=== PATIENT | male | born 1945 | race African-American/Black ===

== ENCOUNTER 2017-01-23 14:46 | Emergency (ER) | payer MEDICARE, MEDICAID ==
[~2017-01-23] VITALS: Ht 170.2 cm; Wt 71.2 kg
[~2017-01-23 14:46] MED LIST: AMBIEN5 MG ORAL; ANTIVERT25 MG ORAL; AUGMENTIN 500M500 MG PO; AZITHROMYCIN250 MG PO; BACTRIM-DS1 EA ORAL; CEPHALEXIN500 MG ORAL; CEPHALEXIN500 MG PO; IBUPROFEN600 MG ORAL; IBUPROFEN600 MG PO; KEFLEX500 MG ORAL; LEVAQUIN500 MG ORAL; NAPROXEN375 MG PO; NKM; NORCO 5-325 TA1 EACH PO; NORCO 5/3251 TAB ORAL; PHENERGAN/CODE120 ML PO; VALIUM5 MG PO; VICODIN 5-5001 EACH PO
[2017-01-23] MEDS ORDERED: traMADol 50mg tab ORAL ONE (16:00)
[2017-01-23 16:08] LABS: APPEARANCE,URINE CLEAR; KETONES,URINE 2+ (NEGATIVE); LEUKOCYTE ESTERASE ,URINE 1+ (NEGATIVE); NITRITE,URINE NEGATIVE (NEGATIVE); PH,URINE 5 (4.5-8.0); PROTEIN,URINE NEGATIVE (NEGATIVE); UROBILINOGEN,URINE NORMAL MG/DL (0.0-1.0)
[2017-01-23 16:32] LABS: BACTERIA,URINE FEW /HPF; RBC,URINE 0-2 /HPF (0 - 0)
[2017-01-23] MEDS ORDERED: PEPCID20 MG ORAL (16:42)
[2017-01-23] MEDS ORDERED: NITROFURANTOIN100 M2 ORAL (16:42)
[2017-01-23 17:30] VITALS: BP 116/62
--- NOTE | 2017-01-23 20:53 | Emergency Room Report ---
History of Present Illness General Chief Complaint: Back Pain-No Injury Present Illness HPI The patient is a 71-year-old male with a history of GERD presenting for chest burning and left lower back pain which began yesterday. The patient states that this does feel like acid reflux. The patient has not taken any medications for this yet. Pain is described as a 5/10 burning sensation and is worse with eating. The pain does not radiate. Patient first noticed the left lower back pain yesterday for no known reason. This pain is described as a 6/10 dull ache it is worse with movement. he has also noticed increased urinary frequency and a darkened urine. The patient does admit to a slight dysuria. The patient denies hematuria or canal discharge. The patient denies other symptoms including nausea, vomiting, fever, chills, headache, chest pain or shortness of breath, no diaphoresis Allergies: Coded Allergies: No Known Allergies (Unverified , 08/06/12) Patient History Past Medical History: see triage record Pertinent Family History: none Reviewed Nursing Documentation: PMH: Agreed, PSxH: Agreed Nursing Documentation-PMH Past Medical History: No History, Except For Hx Hypertension: No Hx Pacemaker: No Hx Asthma: No Hx COPD: No Hx Diabetes: No Hx Cancer: No Hx Gastrointestinal Problems: Yes - GERD Hx Dialysis: No Hx Neurological Problems: No Hx Cerebrovascular Accident: No Hx Seizures: No Review of Systems All Other Systems: negative except mentioned in HPI Physical Exam Vital Signs Date Time Temp Pulse Resp B/P Pulse Ox O2 Delivery O2 Flow Rate FiO2 01/23/17 15:05 99.7 81 14 112/58 100 Room Air Sp02 EP Interpretation: reviewed, normal General Appearance: no apparent distress, alert, GCS 15, non-toxic Head: normocephalic, atraumatic Eyes: bilateral eye PERRL, bilateral eye normal inspection ENT: hearing grossly normal, normal pharynx, no angioedema, normal voice Neck: full range of motion, supple/symm/no masses Respiratory: chest non-tender, lungs clear, normal breath sounds, speaking full sentences Cardiovascular #1: regular rate, rhythm, no edema Gastrointestinal: normal bowel sounds, non tender, soft, non-distended, no guarding, no rebound Genitourinary: CVA tenderness (L) Musculoskeletal: back normal, gait/station normal, normal range of motion, non- tender Neurologic: alert, oriented x3, responsive, motor strength/tone normal, sensory intact, speech normal Psychiatric: judgement/insight normal, memory normal, mood/affect normal, no suicidal/homicidal ideation Skin: normal color, no rash, warm/dry, well hydrated Lymphatic: no adenopathy Medical Decision Making PA Attestation Dr. valadez is my supervising physician. Patient management was discussed with my supervising physician Diagnostic Impression: Primary Impression: Gastroesophageal reflux disease Additional Impression: Urinary tract infection ER Course The patient is a 71-year-old male with a history of GERD presenting for chest burning and left lower back pain which began yesterday DDx: UTI pyelonephritis, muscle strain PE: Vitals WNL. NAD. Abdomen: Normal appearance. Non distended. No ecchymosis. Normal BS. Non TTP. No McBurney point tenderness. No guarding. + L sided CVA tenderness Urinalysis shows 2-4 white blood cells with few bacteria Primarily due to symptoms, pt will be treated for UTI. ER precautions given Pt given prescription for pepcid and will FU with PMD. Laboratory Tests Test 01/23/17 15:38 Urine Color Yellow Urine Appearance Clear Urine pH 5 (4.5-8.0) Urine Specific [place] 1.020 (1.005-1.035) Urine Protein Negative (NEGATIVE) Urine Glucose (UA) Negative (NEGATIVE) Urine Ketones 2+ (NEGATIVE) H Urine Occult Blood Negative (NEGATIVE) Urine Nitrite Negative (NEGATIVE) Urine Bilirubin Negative (NEGATIVE) Urine Urobilinogen Normal MG/DL (0.0-1.0) Urine Leukocyte Esterase 1+ (NEGATIVE) H Urine RBC 0-2 /HPF (0 - 0) H Urine WBC 2-4 /HPF (0 - 0) Urine Squamous Epithelial Cells None /LPF (NONE/OCC) Urine Bacteria Few /HPF (NONE) Lab Results Impression Urinalysis shows 2-4 white blood cells with few bacteria Last Vital Signs Date Time Temp Pulse Resp B/P Pulse Ox O2 Delivery O2 Flow Rate FiO2 01/23/17 17:30 99.5 84 15 116/62 100 Room Air Status: improved Disposition: HOME, SELF-CARE Condition: Improved Scripts Nitrofurantoin Monohyd/M-Cryst* (MACROBID 100 MG*) 100 Mg Capsule 100 MG ORAL EVERY 12 HOURS, #20 CAP Prov: TERZIAN,SANIYA P.A. 01/23/17 Famotidine (PEPCID) 20 Mg Tablet 20 MG ORAL DAILY, #7 TAB 0 Refills Prov: SANIYA FELDER 01/23/17 Patient Instructions: Urinary Tract Infection, Food Choices for Gastroesophageal Reflux Disease, Adult, Yegs-ds-Hadu, Gastroesophageal Reflux Disease, Adult Additional Instructions: I discussed my findings with the patient. All questions and concerns have been answered. Treatment and medication compliance have been addressed. I advised the patient that they need to follow up with PMD in 3-5 days. Return to ED if symptoms worsen, new symptoms arise, or if needed for any reason. Patient verbalized understanding of discharge instructions. SANIYA FELDER Jan 23, 2017 20:53
== END 2017-01-23 17:32 | disposition home or self-care (01) ==
LOC: EMR 15:34
DX: K21.9 Gastro-esophageal reflux disease without esophagitis (principal); N39.0 Urinary tract infection, site not specified
CPT/HCPCS: 81003; 99284

== ENCOUNTER 2017-03-05 13:43 | Emergency (ER) | payer MEDICARE, MEDICAID ==
[~2017-03-05] VITALS: Ht 170.2 cm; Wt 70.3 kg
[~2017-03-05 13:43] MED LIST changes: +NITROFURANTOIN100 M2 ORAL; +PEPCID20 MG ORAL
--- NOTE | 2017-03-05 14:49 | Diagnostic Imaging Report ---
Indication: Chest Pain Comparison: 11/25/13 A single view chest radiograph was obtained. Findings: Cardiomediastinal appearance is within normal limits for age. Pulmonary vascularity is appropriate. The diaphragmatic contour is smooth and costophrenic angles are sharp. No pleural effusions are identified. The bones are unremarkable. Impression: No acute findings
[2017-03-05 14:56] VITALS: BP 118/63
--- NOTE | 2017-03-05 15:01 | Diagnostic Imaging Report ---
Indication: Dizziness Technique: Contiguous 5 mm thick transaxial imaging of the head obtained in a Siemens Sensation [address] scanner. Soft tissue and bone windows generated. Total Dose length Product (DLP): [address] Dose Index Volume (CTDIvol): 70.38 mGy Comparison: none Findings: There is mild prominence of the ventricles, basal cisterns, and cerebral sulci consistent with atrophy. Mild, nonspecific, white matter hypoattenuation is noted throughout the brain consistent with chronic small vessel disease. There is no midline shift, edema, acute hemorrhage, mass effect, or abnormal extra-axial fluid collections. Bones and extra osseous soft tissues are unremarkable. Impression: No acute intracranial bleed, mass effect or edema. Mild atrophy of the brain. Nonspecific white matter hypoattenuation probably due to chronic small vessel disease. The CT scanner at [facility] is accredited by the [employer] and the scans are performed using protocols designed to limit radiation exposure to as low as reasonably achievable to attain images of sufficient resolution adequate for diagnostic evaluation.
[2017-03-05 15:18] LABS: BASOPHILS % (AUTO) 0.8 % (0.0-2.0); EOSINOPHILS % (AUTO) 4.8 % (0.0-3.0); LYMPHOCYTES % (AUTO) 4.9 % (20.0-45.0); MEAN CORPUSCULAR HEMOGLOBIN 31.3 PG (27.0-31.0); MEAN CORPUSCULAR HGB CONC 33.5 G/DL (32.0-36.0); MEAN CORPUSCULAR VOLUME 93 FL (80-99); MEAN PLATELET VOLUME 5.3 FL (6.5-10.1); MONOCYTES % (AUTO) 4.9 % (1.0-10.0); NEUTROPHILS % (AUTO) 84.6 % (45.0-75.0); PLATELET COUNT 426 K/UL (150-450); RED BLOOD COUNT 4.77 M/UL (4.70-6.10); RED CELL DISTRIBUTION WIDTH 11.7 % (11.6-14.8); WHITE BLOOD COUNT 15.6 K/UL (4.8-10.8)
[2017-03-05 15:21] LABS: APPEARANCE,URINE CLEAR; KETONES,URINE NEGATIVE (NEGATIVE); LEUKOCYTE ESTERASE ,URINE 1+ (NEGATIVE); NITRITE,URINE NEGATIVE (NEGATIVE); PH,URINE 5 (4.5-8.0); PROTEIN,URINE 1+ (NEGATIVE); UROBILINOGEN,URINE NORMAL MG/DL (0.0-1.0)
[2017-03-05 15:41] LABS: AMORPHOUS SEDIMENT,UR FEW /LPF; BACTERIA,URINE MODERATE /HPF
--- NOTE | 2017-03-05 15:41 | Emergency Room Report ---
History of Present Illness General Chief Complaint: Chest Pain Source: Patient Present Illness HPI 72-year-old male presents to ED for evaluation. States the last 2 weeks he's had some chest pain and back pain. Pain is left-sided and in the back. 5/10. Intermitted. Throbbing. Denies shortness of breath. Denies history of hypertension. 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 Also complaining of dizziness. Feeling lightheaded at times. Patient has history of low blood pressure. Not take any medication for this. checked his blood pressure this morning it was 90/45. In ER BP is improved. Denies any photophobia, blurry vision. Denies nausea or vomiting. Denies fevers and neck stiffness. no other aggravating or relieving factors. denies any other associated symptoms Allergies: Coded Allergies: No Known Allergies (Unverified , 08/06/12) Patient History Past Medical History: GERD Past Surgical History: none Pertinent Family History: none Social History: Denies: alcohol use, drug use, smoking Immunizations: UTD Reviewed Nursing Documentation: PMH: Agreed, PSxH: Agreed Nursing Documentation-PMH Hx Hypertension: No Hx Pacemaker: No Hx Asthma: No Hx COPD: No Hx Diabetes: No Hx Cancer: No Hx Gastrointestinal Problems: Yes - GERD Hx Dialysis: No Hx Neurological Problems: No Hx Cerebrovascular Accident: No Hx Seizures: No Review of Systems All Other Systems: negative except mentioned in HPI Physical Exam Vital Signs Date Time Temp Pulse Resp B/P Pulse Ox O2 Delivery O2 Flow Rate FiO2 03/05/17 13:58 97.9 82 20 119/63 100 Room Air Sp02 EP Interpretation: reviewed, normal General Appearance: no apparent distress, alert, GCS 15, non-toxic Head: normocephalic, atraumatic Eyes: bilateral eye PERRL, bilateral eye normal inspection ENT: hearing grossly normal, normal pharynx, no angioedema, normal voice Neck: full range of motion, supple/symm/no masses Respiratory: lungs clear, normal breath sounds, speaking full sentences, other - reproducible chest wall pain lateral Cardiovascular #1: regular rate, rhythm, no edema Cardiovascular #2: 2+ carotid (R), 2+ carotid (L), 2+ radial (R), 2+ radial (L) , 2+ dorsalis pedis (R), 2+ dorsalis pedis (L) Gastrointestinal: normal bowel sounds, non tender, soft, non-distended, no guarding, no rebound Rectal: deferred Genitourinary: normal inspection, no CVA tenderness Musculoskeletal: back normal, gait/station normal, normal range of motion, non- tender Neurologic: alert, oriented x3, responsive, motor strength/tone normal, sensory intact, speech normal Psychiatric: judgement/insight normal, memory normal, mood/affect normal, no suicidal/homicidal ideation Reflexes: 3+ bicep (R), 3+ bicep (L), 3+ tricep (R), 3+ tricep (L), 3+ knee (R) , 3+ knee (L) Skin: normal color, no rash, warm/dry, well hydrated Lymphatic: no adenopathy Medical Decision Making Diagnostic Impression: Primary Impression: Urinary tract infection Qualified Codes: N39.0 - Urinary tract infection, site not specified Additional Impression: Chest wall pain ER Course Hospital Course 72-year-old male presents to ED complaining of dizziness occasionally. Chest wall pain x2 weeks. Weakness. BP low in the morning Differential diagnoses include: arrythmia, dehydration, intracranial bleed, seizure Clinical course Patient placed on stretcher. on quality assurance monitor body. After initial history and physical I ordered labs, EKG, chest Xray, IVFs, CT Brain labs reviewed- noted leukocytosis, Hb/Hct stable, electrolytes ok, troponins negative, UA + bacteria CT Brain - unremarkable Chest x-ray- no acute process EKG - NSR, no acute changes Clinically patient has muscular chest pain. Patient has no risk factors for cardiac disease. Patient BP remains normal in ED. Patient may have episodes of hypotension when he is not hydrated well. Patient is aware of this. Patient does have UTI which can be explaining his symptoms Given negative cardiac workup with stable vitals I believe patient be safely discharged to home at this time pending outpatient followup I. I feel this is a highly complex case requiring extensive working including EKG/Rhythm strip, Xray/CT/US, Blood/urine lab work, repeat exams while in ED, and administration of strong opiates/narcotics for pain control, admission to hospital or close patient follow up. Diagnosis - UTI, chest wall pain Stable and discharged to home with Rx Tylenol, Macrobid. Followup with PMD. Return to ED if symptoms recur or worsen Labs Test 03/05/17 14:56 03/05/17 15:10 White Blood Count 15.6 K/UL (4.8-10.8) Red Blood Count 4.77 M/UL (4.70-6.10) Hemoglobin 14.9 G/DL (14.2-18.0) Hematocrit 44.5 % (42.0-52.0) Mean Corpuscular Volume 93 FL (80-99) Mean Corpuscular Hemoglobin 31.3 PG (27.0-31.0) Mean Corpuscular Hemoglobin Concent 33.5 G/DL (32.0-36.0) Red Cell Distribution Width 11.7 % (11.6-14.8) Platelet Count 426 K/UL (150-450) Mean Platelet Volume 5.3 FL (6.5-10.1) Neutrophils (%) (Auto) 84.6 % (45.0-75.0) Lymphocytes (%) (Auto) 4.9 % (20.0-45.0) Monocytes (%) (Auto) 4.9 % (1.0-10.0) Eosinophils (%) (Auto) 4.8 % (0.0-3.0) Basophils (%) (Auto) 0.8 % (0.0-2.0) Sodium Level 139 mEQ/L (135-145) Potassium Level 4.0 mEQ/L (3.4-4.9) Chloride Level 99 mEQ/L (98-107) Carbon Dioxide Level 27 mEQ/L (20-30) Anion Gap 13 (5-15) Blood Urea Nitrogen 21 mg/dL (7-23) Creatinine 1.4 mg/dL (0.7-1.2) Estimat Glomerular Filtration Rate > 60 mL/min (>60) Glucose Level 91 mg/dL (74-106) Calcium Level 9.7 mg/dL (8.6-10.2) Total Bilirubin 0.7 mg/dL (0.0-1.2) Aspartate Amino Transf (AST/SGOT) 18 U/L (5-40) Alanine Aminotransferase (ALT/SGPT) 14 U/L (3-41) Alkaline Phosphatase 52 U/L (40-129) Total Creatine Kinase 72 U/L (38-174) Creatine Kinase MB < 1.5 ng/mL (< 6.7) Creatine Kinase MB Relative Index Troponin I < 0.30 ng/mL (<=0.30) Pro-B-Type Natriuretic Peptide 170 pg/mL (0-125) Total Protein 7.2 g/dL (6.6-8.7) Albumin 3.8 g/dL (3.5-5.2) Globulin 3.4 g/dL Albumin/Globulin Ratio 1.1 (1.0-2.7) Urine Color Yellow Urine Appearance Clear Urine pH 5 (4.5-8.0) Urine Specific [place] 1.020 (1.005-1.035) Urine Protein 1+ (NEGATIVE) Urine Glucose (UA) Negative (NEGATIVE) Urine Ketones Negative (NEGATIVE) Urine Occult Blood 1+ (NEGATIVE) Urine Nitrite Negative (NEGATIVE) Urine Bilirubin Negative (NEGATIVE) Urine Urobilinogen Normal MG/DL (0.0-1.0) Urine Leukocyte Esterase 1+ (NEGATIVE) Urine RBC 5-10 /HPF (0 - 0) Urine WBC 10-15 /HPF (0 - 0) Urine Squamous Epithelial Cells None /LPF (NONE/OCC) Urine Amorphous Sediment Few /LPF (NONE) Urine Bacteria Moderate /HPF (NONE) EKG Diagnostic Results Rate: normal Rhythm: NSR ST Segments: no acute changes ASA given to the pt in ED: No Rhythm Strip Diag. Results EP Interpretation: yes Rhythm: NSR, no PVC's, no ectopy Chest X-Ray Diagnostic Results EP Interpretation: No Findings: no consolidation, no effusion, no pneumothorax, no acute cardiopulmonary disease Number of Views: 1 CT/MRI/US Diagnostic Results CT/MRI/US Diagnostic Results : Imaging Test Ordered: CT Head Impression no acute process Last Vital Signs Date Time Temp Pulse Resp B/P Pulse Ox O2 Delivery O2 Flow Rate FiO2 03/05/17 14:56 64 12 118/63 100 Room Air 03/05/17 13:58 97.9 Status: improved Disposition: HOME, SELF-CARE Condition: Stable Scripts Acetaminophen* (TYLENOL EXTRA STRENGTH*) 500 Mg Tablet 500 MG ORAL Q8H Y for Prn Headache/Temp > 101, #30 TAB 0 Refills Prov: DENISE LIMA M.D. 03/05/17 Nitrofurantoin Monohyd/M-Cryst* (MACROBID 100 MG*) 100 Mg Capsule 100 MG ORAL EVERY 12 HOURS for 7 Days, CAP Prov: DENISE LIMA M.D. 03/05/17 Referrals: NON PHYSICIAN (PCP) DENISE LIMA M.D. March 05, 2017 15:41
[2017-03-05 15:59] LABS: ALANINE AMINOTRANSFERASE 14 U/L (3-41); ALBUMIN/GLOBULIN RATIO 1.1 (1.0-2.7); ASPARTATE AMINO TRANSFERASE 18 U/L (5-40); CALCIUM 9.7 mg/dL (8.6-10.2); CARBON DIOXIDE 27 mEQ/L (20-30); CHLORIDE 99 mEQ/L (98-107); CREATININE 1.4 mg/dL (0.7-1.2); GLOMERULAR FILTRATION RATE > 60 mL/min (>60); HEMOLYSIS 4; SODIUM 139 mEQ/L (135-145); TOTAL PROTEIN 7.2 g/dL (6.6-8.7)
[2017-03-05 16:00] LABS: ANION GAP 13 (5-15)
[2017-03-05 16:03] LABS: TROPONIN I < 0.30 ng/mL (<=0.30)
[2017-03-05] MEDS ORDERED: TYLENOL EXTRA500 MG ORAL (16:10)
[2017-03-05] MEDS ORDERED: NITROFURANTOIN100 M2 ORAL (16:10)
[2017-03-05 16:14] VITALS: BP 114/60
[2017-03-05 16:26] VITALS: BP 112/57
[2017-03-05 16:29] LABS: CKMB < 1.5 ng/mL (< 6.7)
--- NOTE | 2017-03-06 16:26 | Cardiology Report ---
APPROVED REPORT EKG Measurement Heart [id number] Normal sinus rhythm Normal ECG
== END 2017-03-05 16:31 | disposition home or self-care (01) ==
LOC: EMR 14:12
DX: N39.0 Urinary tract infection, site not specified (principal); R07.89 Other chest pain; K21.9 Gastro-esophageal reflux disease without esophagitis; R42 Dizziness and giddiness; R53.1 Weakness
CPT/HCPCS: 36415; 70450; 71010; 80053; 81003; 82550; 82553; 83880; 84484; 85025; 87086; 93005; 96360

== ENCOUNTER 2017-05-22 06:22 | Inpatient (IN) | payer MEDICARE, MEDICAID ==
[~2017-05-22] VITALS: Ht 170.2 cm; Wt 68.0 kg
[2017-05-22] VITALS (17 sets, daily range): BP systolic 104–135; BP diastolic 58–73
[~2017-05-22 06:22] MED LIST changes: +FAMOTIDINE20 MG ORAL; +TYLENOL EXTRA500 MG ORAL
[2017-05-22] MEDS ORDERED: ceFAZolin sod 1 GM in NS 55 ML IVPB ONE (07:00)
[2017-05-22] MEDS: Bupivacaine 0.5% Inj 30 ml vial INJ ONE ×3 (07:15→09:31)
--- NOTE | 2017-05-22 07:17 | Anethesia Preoperative Eval ---
Anesthesia Pre-op PMH/ROS General Date of Evaluation: May 22, 2017 Anesthesiologist: Kishor ASA Score: ASA 3 Mallampati Score Class I : Soft palate, uvula, fauces, pillars visible Class II: Soft palate, uvula, fauces visible Class III: Soft palate, base of uvula visible Class IV: Only hard plate visible Mallampati Classification: Class II Surgeon: Nithin Diagnosis: Prostate cancer Surgical Procedure: laparoscopic prostatectomy Anesthesia History: none Family History: no anesthesia problems Allergies: Coded Allergies: No Known Allergies (Unverified , 08/06/12) Medications: see eMAR Past Medical History Cardiovascular: Denies: CAD, HTN, TN, arrhythmia, other, valve dz Pulmonary: Denies: COPD, LUKAS, asthma, other Gastrointestinal/Genitourinary: Reports: GERD, other - prostate cancer, Denies: CRI, ESRD Neurologic/Psychiatric: Reports: depression/anxiety, Denies: CVA, TIA, dementia, other Endocrine: Denies: DM, hypothyroidism, other, steroids HEENT: Denies: PICAYUNE (L), PICAYUNE (R), cataract (L), cataract (R), glaucoma, other Hematology/Immune: Denies: DVT, anemia, bleeding disorder, other Musculoskeletal/Integumentary: Reports: DJD, OA, Denies: DDD, RA, edema, other PSxH Narrative: Denies Anesthesia Pre-op Phys. Exam Physician Exam see chart Constitutional: NAD Cardiovascular: RRR Respiratory: CTA Airway Exam Mallampati Score: Class II MO: limited ROM: limited Anesthesia Pre-op A/P Labs see chart Studies Pre-op Studies: EKG - sr Risk Assessment & Plan Assessment: ASa III Plan: GA Status Change Before Surgery: No Pre-Antibiotics Drug: Ancef 1g Given Within 1 Hr of Incision: Yes Time Given: 08:00 MAGAN ACOSTA M.D. May 22, 2017 07:17
[2017-05-22] MEDS ORDERED: Surgicel 4in x 8in TOPIC ONE (07:29)
[2017-05-22] MEDS ORDERED: NS Irrig 1000ml ONE (07:30)
[2017-05-22] MEDS ORDERED: fentaNYL 250mcg/5ml ONE (07:30)
[2017-05-22] MEDS ORDERED: Midazolam 2mg/2ml Inj ONE (07:30)
[2017-05-22] MEDS ORDERED: Sterile Water Irrig 1000ml IRRIG ONE (07:30)
[2017-05-22] MEDS ORDERED: Metoclopramide 10mg/2ml Inj ONE (07:30)
[2017-05-22] MEDS ORDERED: Zemuron 50mg/5ml Inj IV ONE (07:30)
[2017-05-22] MEDS ORDERED: Propofol 10mg/ml 20ml IV ONE (07:30)
[2017-05-22] MEDS ORDERED: LR 1000ml ONE (07:30)
[2017-05-22] MEDS ORDERED: ProvayBlue 5mg/ml 10ml amp INJ ONE (07:30)
[2017-05-22] MEDS ORDERED: Dexamethasone 4mg/ml vial ONE (07:30)
--- NOTE | 2017-05-22 07:55 | Pre-Procedure Note/Attestation ---
Pre-Procedure Note/Attestation Complete Prior to Procedure Planned Procedure: not applicable Procedure Narrative: laparoscopic radical prostatectomy Indications for Procedure Pre-Operative Diagnosis: prostate cancer Attestation I attest that I discussed the nature of the procedure; its benefits; risks and complications; and alternatives (and the risks and benefits of such alternatives ), prior to the procedure, with the patient (or the patient's legal pharmaceutical sales representative). I attest that, if there was a reasonable possibility of needing a blood transfusion, the patient (or the patient's legal pharmaceutical sales representative) was given the [facility] standardized written summary, pursuant to the [place] Blood Safety Act ([place] Health and Safety Code # 1645, as amended). I attest that I re-evaluated the patient just prior to the surgery and that there has been no change in the patient's H&P, except as documented below: Chung Weller MD May 22, 2017 07:55
[2017-05-22] MEDS ORDERED: NS Irrig 1000ml IRRIG ONE (08:18)
[2017-05-22] MEDS ORDERED: LR 1000ml 1,000 ML IVLG SCH (08:23)
--- NOTE | 2017-05-22 08:23 | Immediate Post-Op Evaluation ---
Immediate Post-Op Evalulation Immediate Post-Op Evalulation Procedure: Laparoscopic prostatectomy Date of Evaluation: May 22, 2017 Time of Evaluation: 09:53 IV Fluids: 2.8L Blood Products: 0 Estimated Blood Loss: 100 Urinary Output: 0 Blood Pressure Systolic: 129 Blood Pressure Diastolic: 70 Pulse Rate: 71 Respiratory Rate: 16 O2 Sat by Pulse Oximetry: 100 Temperature (Fahrenheit): 96.8 Pain Score (1-10): 0 Nausea: No Vomiting: No Complications 0 Patient Status: awake, reacts, patent, none Hydration Status: adequate Drug: Ancef 1g Given Within 1 Hr of Incision: Yes Time Given: 08:00 MAGAN ACOSTA M.D. May 22, 2017 08:23
[2017-05-22] MEDS ORDERED: DiphenhydrAMINE 50mg/ml Inj IVP PRN (08:30)
[2017-05-22] MEDS ORDERED: Metoclopramide 10mg/2ml Inj IVP PRN (08:30)
[2017-05-22] MEDS ORDERED: LORazepam Inj 2mg/ml 1ml IV PRN ×2 (08:30→14:45)
[2017-05-22] MEDS ORDERED: Hydromorphone 0.5mg/0.5ml inj IVP PRN (08:30)
[2017-05-22] MEDS ORDERED: fentaNYL 100 mcg/2 mL IV PRN (08:30)
--- NOTE | 2017-05-22 09:46 | Brief Operative Note ---
Immediate Post Operative Note Operative Note Pre-op Diagnosis: prostate cancer Procedure: Laparoscopic radical prostatectomy Post-op Diagnosis: same Post-op Diagnosis: same as pre-op Surgeon: Patel weller Computer System Validation Specialist: Yony Winslow Anesthesia: general Specimen: yes Complications: none Condition: stable Estimated Blood Loss: minimal Implant(s) used?: No Chung Weller MD May 22, 2017 09:46
[2017-05-22 11:10] LABS: MEAN CORPUSCULAR HEMOGLOBIN 31.6 PG (27.0-31.0); MEAN CORPUSCULAR HGB CONC 33.1 G/DL (32.0-36.0); MEAN CORPUSCULAR VOLUME 95 FL (80-99); PLATELET COUNT 313 K/UL (150-450); RED BLOOD COUNT 4.34 M/UL (4.70-6.10); RED CELL DISTRIBUTION WIDTH 12.4 % (11.6-14.8)
[2017-05-22] MEDS ORDERED: HYDROmorphone 1mg/ml Carpuject IVP PRN (11:30)
[2017-05-22 11:31] LABS: ANION GAP 8 (5-15); CALCIUM 8.6 mg/dL (8.6-10.2); CARBON DIOXIDE 26 mEQ/L (20-30); CHLORIDE 104 mEQ/L (98-107); CREATININE 1.2 mg/dL (0.7-1.2); GLOMERULAR FILTRATION RATE > 60 mL/min (>60); HEMOLYSIS 4; POTASSIUM 4.7 mEQ/L (3.4-4.9); SODIUM 138 mEQ/L (135-145)
[2017-05-22 11:40] LABS: BAND NEUTROPHILS % (MANUAL) 0 % (0-8); BASOPHILS % (MANUAL) 0 % (0-2); EOSINOPHILS % (MANUAL) 1 % (0-3); LYMPHOCYTES % (MANUAL) 4 % (20-45); NEUTROPHILS % (MANUAL) 92 % (45-75); PLATELET ESTIMATE ADEQUATE; PLATELET MORPHOLOGY NORMAL; TOTAL CELLS COUNTED 100
[2017-05-22] MEDS ORDERED: D5 1/2NS w/KCl 20mEq 1,000 ML IV SCH (12:00)
[2017-05-22] MEDS ORDERED: Ketorolac 30mg Inj IM PRN (13:30)
--- NOTE | 2017-05-22 14:42 | History and Physical ---
History of Present Illness General Date patient seen: May 22, 2017 Present Illness HPI 72 year old male with hx of prostate cancer admitted for radical prostatectomy. He is on the floor for post operative care and pain management. Allergies: Coded Allergies: No Known Allergies (Unverified , 08/06/12) Medication History Scheduled Famotidine (Famotidine), 20 MG ORAL DAILY, (Reported) Nitrofurantoin Monohyd/M-Cryst* (Macrobid 100 Mg*), 100 MG ORAL EVERY 12 HOURS, (Reported) Scheduled PRN Acetaminophen* (Tylenol Extra Strength*), 500 MG ORAL Q8H PRN for Prn Headache/ Temp > 101 Discontinued Medications Famotidine (Pepcid), 20 MG ORAL DAILY Discontinued Reason: Therapy completed Nitrofurantoin Monohyd/M-Cryst* (Macrobid 100 Mg*), 100 MG ORAL EVERY 12 HOURS Discontinued Reason: Therapy completed Nitrofurantoin Monohyd/M-Cryst* (Macrobid 100 Mg*), 100 MG ORAL EVERY 12 HOURS Discontinued Reason: Therapy completed Patient History Healthcare decision maker Resuscitation status Full Code Advanced Directive on File No Past Medical/Surgical History Past Medical/Surgical History: (1) Opiate dependence (2) Gastroesophageal reflux disease (3) Prostate cancer Review of Systems Constitutional: Reports: no symptoms Eye: Reports: no symptoms ENT: Reports: no symptoms Respiratory: Reports: no symptoms Cardiovascular: Reports: no symptoms Physical Exam General Appearance: WD/WN Lines, tubes and drains: peripheral HEENT: normocephalic, atraumatic Neck: non-tender, supple Respiratory/Chest: chest wall non-tender, lungs clear Breasts: no masses Cardiovascular/Chest: normal peripheral pulses Abdomen: normal bowel sounds, non tender Genitourinary/Rectal: normal genital exam Extremities: normal range of motion, non-tender Skin Exam: normal pigmentation Last 24 Hour Vital Signs Date Time Temp Pulse Resp B/P Pulse Ox O2 Delivery O2 Flow Rate FiO2 05/22/17 12:20 97.4 62 17 108/58 99 Nasal Cannula 2.0 05/22/17 11:55 97.2 71 18 127/61 99 Nasal Cannula 2.0 05/22/17 11:30 96.4 63 18 128/62 99 Nasal Cannula 2.0 05/22/17 11:15 96.1 71 18 135/63 99 Nasal Cannula 2.0 05/22/17 10:55 97.8 70 22 133/63 100 Nasal Cannula 3.0 05/22/17 10:43 97.8 05/22/17 10:40 72 19 134/72 100 Nasal Cannula 3.0 05/22/17 10:34 71 16 100 05/22/17 10:25 67 17 133/66 100 Nasal Cannula 3.0 05/22/17 10:13 60 19 126/66 100 Nasal Cannula 3.0 05/22/17 09:58 69 16 134/64 100 Simple Mask 6.0 05/22/17 09:53 66 17 127/63 100 Simple Mask 6.0 05/22/17 09:48 96.8 71 17 129/70 100 Simple Mask 6.0 05/22/17 07:19 97.5 65 17 113/59 100 Room Air Laboratory Tests Test 05/22/17 10:45 White Blood Count 8.0 K/UL (4.8-10.8) Red Blood Count 4.34 M/UL (4.70-6.10) L Hemoglobin 13.7 G/DL (14.2-18.0) L Hematocrit 41.5 % (42.0-52.0) L Mean Corpuscular Volume 95 FL (80-99) Mean Corpuscular Hemoglobin 31.6 PG (27.0-31.0) H Mean Corpuscular Hemoglobin Concent 33.1 G/DL (32.0-36.0) Red Cell Distribution Width 12.4 % (11.6-14.8) Platelet Count 313 K/UL (150-450) Mean Platelet Volume 5.0 FL (6.5-10.1) L Neutrophils (%) (Auto) % (45.0-75.0) Lymphocytes (%) (Auto) % (20.0-45.0) Monocytes (%) (Auto) % (1.0-10.0) Eosinophils (%) (Auto) % (0.0-3.0) Basophils (%) (Auto) % (0.0-2.0) Differential Total Cells Counted 100 Neutrophils % (Manual) 92 % (45-75) H Lymphocytes % (Manual) 4 % (20-45) L Monocytes % (Manual) 3 % (1-10) Eosinophils % (Manual) 1 % (0-3) Basophils % (Manual) 0 % (0-2) Band Neutrophils 0 % (0-8) Platelet Estimate Adequate Platelet Morphology Normal Red Blood Cell Morphology Normal Sodium Level 138 mEQ/L (135-145) Potassium Level 4.7 mEQ/L (3.4-4.9) Chloride Level 104 mEQ/L (98-107) Carbon Dioxide Level 26 mEQ/L (20-30) Anion Gap 8 (5-15) Blood Urea Nitrogen 14 mg/dL (7-23) Creatinine 1.2 mg/dL (0.7-1.2) Estimat Glomerular Filtration Rate > 60 mL/min (>60) Glucose Level 170 mg/dL (74-106) H Calcium Level 8.6 mg/dL (8.6-10.2) Height (Feet): 5 Height (Inches): 7.00 Weight (Pounds): 150 Medications Current Medications Medications (Trade) Dose Ordered Sig/Michael Route PRN Reason Start Time Stop Time Status Last Admin Dose Admin Acetaminophen (Tylenol) 650 mg Q4H PRN ORAL FEVER 05/22/17 11:30 06/21/17 11:29 Cefazolin Sodium/ Dextrose (Ancef/D5W) 110 ml @ 220 mls/hr EVERY 8 HOURS IV 05/22/17 16:00 05/22/17 23:29 Dextrose/ Electrolytes (D5 0.45%NS W/ KCl 20mEq) 1,000 ml @ 100 mls/hr Q10H IV 05/22/17 12:00 06/21/17 11:59 05/22/17 12:09 Docusate Sodium (Colace) 100 mg TWICE A DAY ORAL 05/22/17 18:00 06/21/17 17:59 Hydromorphone HCl (Dilaudid) 1 mg Q3H PRN IVP pain score 4-6 05/22/17 11:30 05/29/17 11:29 05/22/17 12:07 Ketorolac Tromethamine 30 mg 30 mg Q6H PRN IM BREAKTHROUGH PAIN 05/22/17 13:30 05/27/17 13:29 Ondansetron HCl (Zofran) 4 mg Q6H PRN IVP Nausea & Vomiting 05/22/17 11:30 06/21/17 11:29 Temazepam (Restoril) 7.5 mg DAILYPRN PRN ORAL Insomnia 05/22/17 11:30 05/29/17 11:29 Assessment/Plan Problem List: (1) S/P prostatectomy ICD Codes: Z90.79 - Acquired absence of other genital organ(s) SNOMED: 86732109, [id number], [id number] (2) Prostate cancer ICD Codes: C61 - Malignant neoplasm of prostate SNOMED: [id number] Assessment/Plan pain management keep fox check electrolytes check PSA level dvr prophylaxis symptomatic treatment RADHA BESS May 22, 2017 14:42
[2017-05-22] MEDS ORDERED: Morphine Sulfate 2mg/ml Inj IVP PRN (14:45)
[2017-05-22] MEDS ORDERED: Miralax 17gm pkt ORAL PRN (14:45)
[2017-05-22] MEDS ORDERED: Zolpidem 5mg tab ORAL PRN (14:45)
[2017-05-22] MEDS ORDERED: Mylanta II UD 30ml ORAL PRN (14:45)
[2017-05-22] MEDS: ceFAZolin 2gm/50ml Premix 50 ML IV SCH ×2 (15:18→21:35)
[2017-05-22] MEDS ORDERED: ceFAZolin sod 2 GM in D5W 110 ML IV SCH (16:00)
[2017-05-22] MEDS ORDERED: Tubing IV Secondary IV ONE (16:59)
[2017-05-22] MEDS: Docusate 100mg cap ORAL SCH (17:37)
[2017-05-23] VITALS: BP 103/57
[2017-05-23 04:00] VITALS: BP 113/63
[2017-05-23 06:20] LABS: BASOPHILS % (AUTO) 0.6 % (0.0-2.0); EOSINOPHILS % (AUTO) 0.3 % (0.0-3.0); LYMPHOCYTES % (AUTO) 11.3 % (20.0-45.0); MEAN CORPUSCULAR HEMOGLOBIN 32.5 PG (27.0-31.0); MEAN CORPUSCULAR HGB CONC 34.3 G/DL (32.0-36.0); MEAN CORPUSCULAR VOLUME 95 FL (80-99); MEAN PLATELET VOLUME 5.1 FL (6.5-10.1); MONOCYTES % (AUTO) 6.4 % (1.0-10.0); NEUTROPHILS % (AUTO) 81.5 % (45.0-75.0); PLATELET COUNT 302 K/UL (150-450); RED BLOOD COUNT 3.54 M/UL (4.70-6.10); RED CELL DISTRIBUTION WIDTH 11.9 % (11.6-14.8); WHITE BLOOD COUNT 10.9 K/UL (4.8-10.8)
[2017-05-23 06:57] LABS: ALANINE AMINOTRANSFERASE 30 U/L (3-41); ALBUMIN/GLOBULIN RATIO 1.1 (1.0-2.7); ANION GAP 7 (5-15); ASPARTATE AMINO TRANSFERASE 27 U/L (5-40); CALCIUM 8.2 mg/dL (8.6-10.2); CARBON DIOXIDE 26 mEQ/L (20-30); CHLORIDE 105 mEQ/L (98-107); CHOLESTEROL 155 mg/dL (< 200); CHOLESTEROL/HDL RATIO 2.7 (3.3-4.4); CREATININE 1.4 mg/dL (0.7-1.2); GLOMERULAR FILTRATION RATE > 60 mL/min (>60); HEMOLYSIS 7; LDL CHOLESTEROL (CALC.) 76 mg/dL (60-99); POTASSIUM 4.2 mEQ/L (3.4-4.9); SODIUM 138 mEQ/L (135-145); TOTAL PROTEIN 5.6 g/dL (6.6-8.7)
[2017-05-23 06:58] LABS: THYROID STIMULATING HORMONE 0.554 uIU/mL (0.300-4.500)
[2017-05-23 08:00] VITALS: BP 116/67
[2017-05-23] MEDS: Docusate 100mg cap ORAL SCH ×3 (09:16→18:31)
--- NOTE | 2017-05-23 11:18 | 48 Hour Post Anesthesia Eval ---
Post Anesthesia Evaluation Procedure: Laparoscopic prostatectomy Date of Evaluation: May 23, 2017 Time of Evaluation: 11:18 Nausea: No Vomiting: No Hydration Status: adequate Follow-up care needed: N/A Beba Clements MD May 23, 2017 11:18
[2017-05-23 12:00] VITALS: BP 117/59
--- NOTE | 2017-05-23 12:06 | Pulmonology Progress Note ---
Assessment/Plan Problems: (1) S/P prostatectomy (2) Prostate cancer (3) Constipation Assessment/Plan start oral pain meds laxatives keep fox check electrolytes Subjective ROS Limited/Unobtainable: No Interval Events: constipated Allergies: Coded Allergies: No Known Allergies (Unverified , 08/06/12) Objective Last 24 Hour Vital Signs Date Time Temp Pulse Resp B/P Pulse Ox O2 Delivery O2 Flow Rate FiO2 05/23/17 08:00 96.0 79 18 116/67 94 Room Air 05/23/17 04:00 97.9 75 18 113/63 96 Room Air 05/23/17 00:00 98.4 71 18 103/57 97 Nasal Cannula 2.0 05/22/17 20:00 98.6 79 18 104/59 96 Nasal Cannula 2.0 05/22/17 16:00 97.4 61 17 116/68 99 Room Air 05/22/17 15:25 97.4 81 17 110/68 99 Room Air 05/22/17 14:55 97.2 82 19 111/73 94 Room Air 05/22/17 14:15 97.4 61 17 116/68 99 Nasal Cannula 2.0 05/22/17 12:20 97.4 62 17 108/58 99 Nasal Cannula 2.0 Intake and Output 05/22/17 05/23/17 19:00 07:00 Intake Total 1450 ml 360 ml Output Total 1080 ml 600 ml Balance 370 ml -240 ml Intake Oral 360 ml IV Total 1450 ml Output Urine Total 1050 ml 600 ml Estimated Blood Loss 30 ml # Voids 1 General Appearance: WD/WN HEENT: normocephalic Respiratory/Chest: chest wall non-tender, lungs clear Cardiovascular: normal peripheral pulses, normal rate Abdomen: normal bowel sounds, soft, non tender Genitourinary: normal external genitalia Extremities: no cyanosis Skin: no rash Neurologic/Psychiatric: superintendent laundry II-XII grossly normal, no motor/sensory deficits Lymphatic: no neck adenopathy Laboratory Tests 05/23/17 05:55: White Blood Count 10.9H, Red Blood Count 3.54L, Hemoglobin 11.5L, Hematocrit 33.6L, Mean Corpuscular Volume 95, Mean Corpuscular Hemoglobin 32.5H, Mean Corpuscular Hemoglobin Concent 34.3, Red Cell Distribution Width 11.9, Platelet Count 302, Mean Platelet Volume 5.1L, Neutrophils (%) (Auto) 81.5H, Lymphocytes (%) (Auto) 11.3L, Monocytes (%) (Auto) 6.4, Eosinophils (%) (Auto) 0.3, Basophils (%) (Auto) 0.6, Sodium Level 138, Potassium Level 4.2, Chloride Level 105, Carbon Dioxide Level 26, Anion Gap 7, Blood Urea Nitrogen 19, Creatinine 1.4H, Estimat Glomerular Filtration Rate > 60, Glucose Level 114H, Calcium Level 8.2L, Total Bilirubin 0.3, Aspartate Amino Transf (AST/SGOT) 27, Alanine Aminotransferase (ALT/SGPT) 30, Alkaline Phosphatase 48, Total Protein 5.6L, Albumin 3.0L, Globulin 2.6, Albumin/Globulin Ratio 1.1, Triglycerides Level 109 , Cholesterol Level 155, LDL Cholesterol 76, HDL Cholesterol 57, Cholesterol/ HDL Ratio 2.7L, Thyroid Stimulating Hormone (TSH) 0.554 Current Medications Medications (Trade) Dose Ordered Sig/Michael Route PRN Reason Start Time Stop Time Status Last Admin Dose Admin Acetaminophen (Tylenol) 650 mg Q4H PRN ORAL FEVER 05/22/17 11:30 06/21/17 11:29 Acetaminophen/ Hydrocodone Bitart ([place] 5/325) 1 tab Q4H PRN ORAL Moderate Pain (Pain Scale 4-6) 05/23/17 12:00 05/30/17 11:59 UNV Al Hydroxide/Mg Hydroxide (Mylanta II) 30 ml Q6H PRN ORAL dyspepsia 05/22/17 14:45 06/21/17 14:44 Dextrose (Dextrose 50%) STAT PRN IV Hypoglycemia 05/22/17 14:45 06/21/17 14:44 Docusate Sodium (Colace) 100 mg THREE TIMES A DAY ORAL 05/23/17 13:00 06/22/17 12:59 UNV Docusate Sodium (Colace) 100 mg TWICE A DAY ORAL 05/22/17 18:00 06/21/17 17:59 05/23/17 09:16 Hydromorphone HCl (Dilaudid) 1 mg Q3H PRN IVP pain score 4-6 05/22/17 11:30 05/29/17 11:29 05/22/17 12:07 Ketorolac Tromethamine (Toradol 30mg) 30 mg Q6H PRN IM BREAKTHROUGH PAIN 05/22/17 13:30 05/27/17 13:29 Lorazepam (Ativan 2mg/ml 1ml) 0.5 mg Q4H PRN IV For Anxiety 05/22/17 14:45 05/29/17 14:44 Ondansetron HCl (Zofran) 4 mg Q6H PRN IVP Nausea & Vomiting 05/22/17 11:30 06/21/17 11:29 Polyethylene Glycol (Miralax) 17 gm BEDTIME ORAL 05/23/17 21:00 06/22/17 20:59 UNV Polyethylene Glycol (Miralax) 17 gm HSPRN PRN ORAL Constipation 05/22/17 14:45 06/21/17 14:44 Ranitidine HCl (Zantac) 150 mg DAILY ORAL 05/22/17 16:00 06/21/17 15:59 05/23/17 09:16 Sennosides (Senokot) 8.6 mg DAILY ORAL 05/23/17 12:00 06/22/17 11:59 UNV Temazepam (Restoril) 7.5 mg DAILYPRN PRN ORAL Insomnia 05/22/17 11:30 05/29/17 11:29 RADHA BESS May 23, 2017 12:06
[2017-05-23] MEDS ORDERED: Norco 5mg/325mg tab ORAL PRN (12:30)
[2017-05-23 16:00] VITALS: BP 124/68
[2017-05-23 20:00] VITALS: BP 122/60
[2017-05-23] MEDS ORDERED: Miralax 17gm pkt ORAL SCH (21:00)
[2017-05-24 04:00] VITALS: BP 124/69
[2017-05-24 06:00] VITALS: BP 124/66
[2017-05-24 06:37] LABS: BASOPHILS % (AUTO) 1.4 % (0.0-2.0); EOSINOPHILS % (AUTO) 1.6 % (0.0-3.0); MEAN CORPUSCULAR HEMOGLOBIN 33.5 PG (27.0-31.0); MEAN CORPUSCULAR HGB CONC 35.8 G/DL (32.0-36.0); MEAN CORPUSCULAR VOLUME 94 FL (80-99); MEAN PLATELET VOLUME 5.5 FL (6.5-10.1); MONOCYTES % (AUTO) 9.4 % (1.0-10.0); NEUTROPHILS % (AUTO) 67.6 % (45.0-75.0); PLATELET COUNT 328 K/UL (150-450); RED BLOOD COUNT 3.69 M/UL (4.70-6.10); RED CELL DISTRIBUTION WIDTH 11.9 % (11.6-14.8); WHITE BLOOD COUNT 7.1 K/UL (4.8-10.8)
[2017-05-24 06:53] LABS: ALANINE AMINOTRANSFERASE 22 U/L (3-41); ALBUMIN/GLOBULIN RATIO 1.2 (1.0-2.7); ANION GAP 9 (5-15); ASPARTATE AMINO TRANSFERASE 24 U/L (5-40); CALCIUM 8.9 mg/dL (8.6-10.2); CARBON DIOXIDE 26 mEQ/L (20-30); CHLORIDE 102 mEQ/L (98-107); CREATININE 1.1 mg/dL (0.7-1.2); GLOMERULAR FILTRATION RATE > 60 mL/min (>60); HEMOLYSIS 6; MAGNESIUM 1.7 mg/dL (1.7-2.5); PHOSPHORUS 3.6 mg/dL (2.5-4.8); POTASSIUM 4.3 mEQ/L (3.4-4.9); SODIUM 137 mEQ/L (135-145)
[2017-05-24 08:00] VITALS: BP 122/61
--- NOTE | 2017-05-24 08:03 | Pulmonology Progress Note ---
Assessment/Plan Assessment/Plan ASSESSMENT prostate Ca s/p laparoscopic radical prostatectomy constipation PLAN OF CARE MS floor pain management keep Figueroa in as per urology surgery closely follows GI prophylaxis bowel regimen monitor renal parameters, lytes Venous Duplex BLE negative PT/OT dc plan as per surgery case discussed and evaluated by supervising physician Subjective Allergies: Coded Allergies: No Known Allergies (Unverified , 08/06/12) Subjective afebrile, no leukocytosis pain controlled Figueroa in Objective Last 24 Hour Vital Signs Date Time Temp Pulse Resp B/P Pulse Ox O2 Delivery O2 Flow Rate FiO2 05/24/17 06:00 98.1 69 18 124/66 95 Room Air 05/24/17 04:00 98.1 69 18 124/69 95 05/23/17 20:00 99.1 75 18 122/60 95 05/23/17 16:00 96.4 78 18 124/68 95 Room Air 05/23/17 13:52 96.6 05/23/17 12:00 96.6 73 17 117/59 94 Room Air Intake and Output 05/23/17 05/24/17 19:00 07:00 Intake Total 550 ml Output Total 900 ml 450 ml Balance -350 ml -450 ml Intake Oral 550 ml Output Urine Total 900 ml 450 ml General Appearance: cachetic, other - A/A/O x 3 AA male in NAD HEENT: normocephalic, atraumatic, anicteric, PERRL Respiratory/Chest: chest wall non-tender, lungs clear, no respiratory distress , no accessory muscle use Cardiovascular: normal peripheral pulses, normal rate, no JVD Abdomen: soft, non tender, non distended, other - snall abdominal incisiions with derssing, C/D/I Genitourinary: other - Figueroa with clear urine Extremities: no edema Neurologic/Psychiatric: no motor/sensory deficits, alert, oriented x 3, responsive Musculoskeletal: normal muscle bulk Laboratory Tests 05/24/17 06:10: White Blood Count 7.1, Red Blood Count 3.69L, Hemoglobin 12.4L, Hematocrit 34.5L , Mean Corpuscular Volume 94, Mean Corpuscular Hemoglobin 33.5H, Mean Corpuscular Hemoglobin Concent 35.8, Red Cell Distribution Width 11.9, Platelet Count 328, Mean Platelet Volume 5.5L, Neutrophils (%) (Auto) 67.6, Lymphocytes ( %) (Auto) 20.0, Monocytes (%) (Auto) 9.4, Eosinophils (%) (Auto) 1.6, Basophils (%) (Auto) 1.4, Sodium Level 137, Potassium Level 4.3, Chloride Level 102, Carbon Dioxide Level 26, Anion Gap 9, Blood Urea Nitrogen 13, Creatinine 1.1, Estimat Glomerular Filtration Rate > 60, Glucose Level 92, Calcium Level 8.9, Phosphorus Level 3.6, Magnesium Level 1.7, Total Bilirubin 0.7, Aspartate Amino Transf (AST/SGOT) 24, Alanine Aminotransferase (ALT/SGPT) 22, Alkaline Phosphatase 44, Total Protein 6.0L, Albumin 3.3L, Globulin 2.7, Albumin/ Globulin Ratio 1.2 Current Medications Medications (Trade) Dose Ordered Sig/Michael Route PRN Reason Start Time Stop Time Status Last Admin Dose Admin Acetaminophen (Tylenol) 650 mg Q4H PRN ORAL FEVER 05/22/17 11:30 06/21/17 11:29 Acetaminophen/ Hydrocodone Bitart ([place] 5/325) 1 tab Q4H PRN ORAL Moderate Pain (Pain Scale 4-6) 05/23/17 12:30 05/30/17 12:29 05/23/17 12:53 Al Hydroxide/Mg Hydroxide (Mylanta II) 30 ml Q6H PRN ORAL dyspepsia 05/22/17 14:45 06/21/17 14:44 Dextrose (Dextrose 50%) STAT PRN IV Hypoglycemia 05/22/17 14:45 06/21/17 14:44 Docusate Sodium (Colace) 100 mg THREE TIMES A DAY ORAL 05/23/17 13:00 06/22/17 12:59 05/23/17 18:31 Hydromorphone HCl (Dilaudid) 1 mg Q3H PRN IVP pain score 4-6 05/22/17 11:30 05/29/17 11:29 05/22/17 12:07 Ketorolac Tromethamine (Toradol 30mg) 30 mg Q6H PRN IM BREAKTHROUGH PAIN 05/22/17 13:30 05/27/17 13:29 Lorazepam (Ativan 2mg/ml 1ml) 0.5 mg Q4H PRN IV For Anxiety 05/22/17 14:45 05/29/17 14:44 Ondansetron HCl (Zofran) 4 mg Q6H PRN IVP Nausea & Vomiting 05/22/17 11:30 06/21/17 11:29 Polyethylene Glycol (Miralax) 17 gm BEDTIME ORAL 05/23/17 21:00 06/22/17 20:59 05/23/17 20:41 Ranitidine HCl (Zantac) 150 mg DAILY ORAL 05/22/17 16:00 06/21/17 15:59 05/23/17 09:16 Sennosides (Senokot) 8.6 mg DAILY ORAL 05/23/17 13:00 06/22/17 12:59 05/23/17 12:52 Temazepam (Restoril) 7.5 mg DAILYPRN PRN ORAL Insomnia 05/22/17 11:30 05/29/17 11:29 [facility]Shona NP May 24, 2017 08:03
[2017-05-24] MEDS: Docusate 100mg cap ORAL SCH ×2 (08:09→12:13)
[2017-05-24 12:00] VITALS: BP 118/63
[2017-05-24 14:00] LABS: PSA % FREE 10.5 % (.); PSA FREE 0.2 ng/mL; PSA TOTAL 1.9 ng/mL (0.0-4.0)
[2017-05-24] MEDS ORDERED: ACETAMINOPHEN-1 EAC1 ORAL (14:09)
[2017-05-24] MEDS ORDERED: LEVOFLOXACIN250 MG ORAL (14:10)
[2017-05-24] MEDS ORDERED: COLACE100 MG ORAL (14:10)
--- NOTE | 2017-05-27 10:38 | Discharge Summary ---
Discharge Summary Hospital Course Date of Admission May 22, 2017 at 06:22 Date of Discharge May 24, 2017 at 16:00 Admitting Diagnosis prostate cancer Reason for Hospitalization: elective surgery EMILY Encarnacion is a 72 year old male who was admitted on May 22, 2017 at 06:22 for prostate cancer for elective surgery Consultations dr Mkcoy IM Procedures s/p 05/22 -Laparoscopic radical prostatectomy by [facility] Course s/p surgery course of recovery uneventful MS floor postoperative care provided pain management addressed, controlled Figueroa kept in as per surgery surgery closely follows GI prophylaxis bowel regimen renal parameters, lytes stable afebrile, no leukocytosis Venous Duplex BLE negative PT/OT PSA level WNL cleared for dc by surgeon fup with surgeon as outpt scripts provided for po abx, analgesia, stool softener FINAL DIAGNOSIS prostate Ca s/p laparoscopic radical prostatectomy constipation Discharge Medications Continued Medications: Acetaminophen With Codeine (T#3) (Tylenol #3 Tab*) Y Tab 1 TAB ORAL Q6HR PRN for For Pain, #20 TAB Docusate Sodium* (Colace*) 100 Mg Capsule 100 MG ORAL THREE TIMES A DAY, #30 CAP Famotidine (Famotidine) 20 Mg Tablet 20 MG ORAL DAILY, TAB 0 Refills Levofloxacin (Levofloxacin*) 250 Mg Tablet 250 MG ORAL DAILY for 7 Days, TAB Nitrofurantoin Monohyd/M-Cryst* (Macrobid 100 Mg*) 100 Mg Capsule 100 MG ORAL EVERY 12 HOURS, CAP Discharge Condition Upon Discharge: stable Discharge Disposition Patient was discharged to Home (01) Discharge Diagnoses: Lobito (Hannah)Shona NP May 27, 2017 10:38
--- NOTE | 2017-05-28 17:31 | Operative Note - Dictated ---
DATE OF OPERATION: 05/22/2017 PREOPERATIVE DIAGNOSIS: Prostate cancer. POSTOPERATIVE DIAGNOSIS: Prostate cancer. OPERATION: Laparoscopic radical prostatectomy. OPERATED BY: Chung Weller M.D. ANESTHESIA: General. FINDINGS: Enlarged prostate and involved seminal vesicles. INDICATIONS FOR SURGERY: The patient had an elevated PSA. Bone scan and CT scan was negative. Treatment options were explained to him at great length including the options of radiation versus surgery. He elected to have laparoscopic prostatectomy first. All potential complications were explained. He signed a consent. OPERATIVE NOTE: He was brought to the operating room, placed in supine position, and prepped and draped in standard fashion under general anesthesia. Veress needle was placed. 5 trocars were placed in the standard position. Dissection started behind the bladder seminal vesicles. They were indurated and adhering to the surrounding tissues. They were finally dissected free and then bladder was from the rectum. Dissection then carried anteriorly bladder from the pubis and the pelvic fascia was opened with electric scissors. An Endo-JIM was placed for dorsal venous complex. Bladder neck sparing technique was used to separate the bladder from the prostate and prostate was then removed preserving neurovascular bundles. After that, bladder neck was reapproximated with urethra using running sutures and there was no evidence of leaks on irrigations. Prostate was removed. There was no evidence of blood loss. Estimated blood loss was approximately 50 mL. The patient tolerated the procedure well. Sponge count and instrument count was correct. Chung Weller M.D. DR: EREN JOB#: [id number] CC:
--- NOTE | 2017-05-30 01:46 | Operative Note - Dictated ---
DATE OF OPERATION: 05/22/2017 NOTE: POOR AUDIO QUALITY OPERATING SURGEON: Yony Winslow M.D. TOURIST INFORMATION OFFICER: Chung Weller M.D. PREOPERATIVE DIAGNOSES: 1. Intraabdominal adhesions. 2. Prostate cancer. POSTOPERATIVE DIAGNOSES: 1. Intraabdominal adhesions. 2. Prostate cancer. PROCEDURE PERFORMED: Laparoscopic lysis of adhesions. BACKGROUND: The patient is a 72-year-old male with a history of prostate cancer, was taken to operating room by Dr. Chung Weller. Upon entering the abdominal cavity and dense adhesions between the anterior abdominal wall, sigmoid colon, and omentum were found that precluded safe access to prostatic gland. I was requested by Dr. Chung Weller to perform lysis of adhesions to gain straight access to the prostate gland for prostatectomy. FINDINGS: As above. PROCEDURE IN DETAIL: First, trocars were placed by Dr. Chung Weller. Two trocars in the right abdomen and two trocars in the left abdomen and 10 mm trocar in the midline just below the umbilicus for camera. I used a 10-degree scope to visualize the left lower quadrant. Omentum was sharply dissected off the anterior abdominal wall taking care to avoid injury to the vessels. After this, the sigmoid colon was found to be adhering to the pelvic inlet. Using scissors, I divided the adhesions between the sigmoid colon from the previous diverticulitis to the anterior abdominal wall and left side of the abdominal wall at the pelvic inlet taking care to avoid injury to the vessels and to the ureters. The left colon and sigmoid were completely mobilized and retracted medially as well as omentum. After that, gained to the prostate gland was achieved and the rest of the procedure was performed by Dr. Chung Weller. Yony Winslow M.D. DR: ARCENIO JOB#: [id number] CC:
--- NOTE | 2017-06-06 14:45 | Diagnostic Imaging Report ---
APPROVED REPORT CPT Code: 93501 Present Symptoms Lower Extremity Pain: BILATERAL: Imaging reveals a patent deep venous system bilaterally. There is no evidence of thrombus within the femoral, popliteal or tibial segments. The greater saphenous veins are also within normal limits. Doppler indicates normal spontaneous flow within these segments.
== END 2017-05-24 16:00 | disposition home or self-care (01) | DRG 708 ==
LOC: SDSOVERFLO 06:22 → 3E 11:19
PROC: 0VT04ZZ Resection of Prostate, Percutaneous Endoscopic Approach (ICD-10-PCS; principal; 2017-05-22 07:30)
PROC: 0DNN4ZZ Release Sigmoid Colon, Percutaneous Endoscopic Approach (ICD-10-PCS; principal; 2017-05-22 07:30)
DX: C61 Malignant neoplasm of prostate (principal); F32.9 Major depressive disorder, single episode, unspecified; K21.9 Gastro-esophageal reflux disease without esophagitis; M19.90 Unspecified osteoarthritis, unspecified site; F41.9 Anxiety disorder, unspecified; K59.00 Constipation, unspecified; K66.0 Peritoneal adhesions (postprocedural) (postinfection)
CPT/HCPCS: 36415; 80048; 80053; 80061; 83735; 84100; 84153; 84154; 84443; 85007; 85025; 86850; 86900; 86901; 87081; 93970; 94003; 94150; J2250; J2405; J2765

== ENCOUNTER 2018-12-21 16:21 | Emergency (ER) | payer MEDICARE, MEDICAID ==
[~2018-12-21] VITALS: Ht 170.2 cm; Wt 80.7 kg
[~2018-12-21 16:21] MED LIST changes: +ACETAMINOPHEN-1 EAC1 ORAL; +COLACE100 MG ORAL; +LEVOFLOXACIN250 MG ORAL; +LIDOCAINE700 M1 TP; +ROBAXIN500 MG PO
[2018-12-21 16:25] VITALS: BP 124/64
--- NOTE | 2018-12-21 16:35 | NUR ---
ED Nurse Note: Pt came in due to multiple bumps on her forearms and abdomen since yesterday.
[2018-12-21] MEDS ORDERED: PREDNISONE20 MG ORAL (16:46)
[2018-12-21] MEDS ORDERED: KENALOG 0.025%15 GM TP (16:46)
[2018-12-21 16:58] VITALS: BP 130/85
--- NOTE | 2018-12-21 16:58 | NUR ---
ED Nurse Note: Pt is cleared by Health Care Provider for discharge. DC instructions/prescription was given and explained to pt and verbalized understanding of teachings given. All medical devices such as ID band removed. Pt AAO x4, ambulatory and left with all personal belongings.
--- NOTE | 2018-12-21 21:56 | Emergency Room Report ---
History of Present Illness General Chief Complaint: Skin Rash/Abscess Source: Medical Record Present Illness HPI The patient is a 73-year-old male presenting for itchy bumps on skin. He noticed this yesterday. He denies any pain. He denies any known allergies. He states that he did not consume any new foods or using any new clothing or detergents. He denies any fever, chills, shortness of breath, chest pain, numbness, tingling, burning sensation Allergies: Coded Allergies: No Known Allergies (Unverified , 08/06/12) Patient History Past Medical History: see triage record Pertinent Family History: none Reviewed Nursing Documentation: PMH: Agreed; PSxH: Agreed Nursing Documentation-PMH Past Medical History: No History, Except For Hx Cardiac Problems: No - BPH insomnia Hx Hypertension: No Hx Pacemaker: No Hx Asthma: Yes - childhood Hx COPD: No Hx Diabetes: No Hx Cancer: Yes - prostate Hx Gastrointestinal Problems: Yes Hx Dialysis: No Hx Neurological Problems: No Hx Cerebrovascular Accident: No Hx Seizures: No Review of Systems All Other Systems: negative except mentioned in HPI Physical Exam Vital Signs Date Time Temp Pulse Resp B/P (MAP) Pulse Ox O2 Delivery O2 Flow Rate FiO2 12/21/18 16:25 97.9 18 124/64 97 Room Air 12/21/18 16:25 64 Sp02 EP Interpretation: reviewed, normal General Appearance: no apparent distress, alert, GCS 15, non-toxic Head: normocephalic, atraumatic Eyes: bilateral eye normal inspection, bilateral eye PERRL ENT: hearing grossly normal, normal pharynx, no angioedema, normal voice Respiratory: chest non-tender, lungs clear, normal breath sounds, speaking full sentences Cardiovascular #1: regular rate, rhythm, no edema Musculoskeletal: back normal, gait/station normal, normal range of motion Neurologic: alert, oriented x3, responsive, motor strength/tone normal, sensory intact, speech normal Psychiatric: judgement/insight normal, memory normal, mood/affect normal, no suicidal/homicidal ideation Skin: other - Erythematous maculopapular rash of the abdomen and chest. Crosses midline. Nontender Medical Decision Making PA Attestation Dr. Singer is my supervising physician. Patient management was discussed with my supervising physician Diagnostic Impression: Primary Impression: Dermatitis ER Course The patient is a 73-year-old male presenting for rash Ddx considered include but not limited to insect bite, contact dermatitis, eczema, cellulitis, shingles PE: Afebrile. NAD Erythematous maculopapular rash of the abdomen and chest. Crosses midline. Nontender The patient will be treated with Oral and topical steroids. ER precautions given Last Vital Signs Date Time Temp Pulse Resp B/P (MAP) Pulse Ox O2 Delivery O2 Flow Rate FiO2 12/21/18 16:58 98.2 84 19 130/85 100 Room Air Status: improved Disposition: HOME, SELF-CARE Condition: Improved Scripts Triamcinolone Acet (Triamcinolone Acetonide) 15 Gm Cream..g. 0.1 % TP Q12HR, #15 GM Prov: SANIYA FELDER 12/21/18 Prednisone* (PREDNISONE*) 20 Mg Tablet 20 MG ORAL DAILY for 5 Days, TAB 0 Refills Prov: SANIYA FELDER 12/21/18 Referrals: NON PHYSICIAN (PCP) Patient Instructions: Rash Additional Instructions: I discussed my findings with the patient. All questions and concerns have been answered. Treatment and medication compliance have been addressed. I advised the patient that they need to follow up with PMD in 3-5 days. Return to ED if symptoms worsen, new symptoms arise, or if needed for any reason. Patient verbalized understanding of discharge instructions. SANIYA FELDER Dec 21, 2018 21:56
== END 2018-12-21 16:58 | disposition home or self-care (01) ==
LOC: EMR 16:55
DX: L30.9 Dermatitis, unspecified (principal); Z85.46 Personal history of malignant neoplasm of prostate; G47.00 Insomnia, unspecified
CPT/HCPCS: 99282

== ENCOUNTER 2019-04-10 12:21 | Emergency (ER) | payer MEDICARE, MEDICAID ==
[~2019-04-10] VITALS: Ht 172.7 cm; Wt 80.7 kg
[~2019-04-10 12:21] MED LIST changes: +KENALOG 0.025%15 GM TP; +PREDNISONE20 MG ORAL
[2019-04-10 12:26] VITALS: BP 121/70
--- NOTE | 2019-04-10 12:26 | NUR ---
ED Nurse Note: Patient c/o pain on the right elbow. Reports no injury or swelling. No redness noted. Patient c/o increased pain when he lifts heavy objects.
--- NOTE | 2019-04-10 13:20 | Emergency Room Report ---
History of Present Illness General Chief Complaint: Pain Source: Medical Record Present Illness HPI 74-year-old male presents to the emergency department complaining of 3 out of 10 severity localized right forearm pain to the proximal forearm area progressive x1 week. Patient reports pain is exacerbated upon lifting heavy objects, shaking people's hands or twisting his hand externally. Patient denies appreciable trauma or fall. Patient denies erythema, bruising, swelling , open wounds or warmth. Patient states that he does play ping-pong quite often and is right-handed. He denies fevers, chills, paresthesias or weakness in the extremity. No other aggravating or relieving factors. Allergies: Coded Allergies: No Known Allergies (Unverified , 04/10/19) Patient History Past Medical History: see triage record Past Surgical History: none Pertinent Family History: none Reviewed Nursing Documentation: PMH: Agreed; PSxH: Agreed Nursing Documentation-PMH Hx Cardiac Problems: No - BPH insomnia Hx Hypertension: No Hx Pacemaker: No Hx Asthma: Yes - childhood Hx COPD: No Hx Diabetes: No Hx Cancer: Yes - prostate Hx Gastrointestinal Problems: Yes Hx Dialysis: No Hx Neurological Problems: No Hx Cerebrovascular Accident: No Hx Seizures: No Review of Systems All Other Systems: negative except mentioned in HPI Physical Exam Vital Signs Date Time Temp Pulse Resp B/P (MAP) Pulse Ox O2 Delivery O2 Flow Rate FiO2 04/10/19 12:26 97.3 68 18 121/70 (87) 94 Sp02 EP Interpretation: reviewed, normal General Appearance: no apparent distress, alert, GCS 15, non-toxic Head: normocephalic, atraumatic Eyes: bilateral eye normal inspection, bilateral eye PERRL ENT: hearing grossly normal, normal voice Neck: full range of motion Respiratory: lungs clear, normal breath sounds, speaking full sentences Cardiovascular #1: regular rate, rhythm, normal capillary refill Cardiovascular #2: 2+ radial (R), 2+ radial (L) Musculoskeletal: gait/station normal, normal range of motion, tender - proximal right forearm ttp, FROM, no obvious deformities, no erythema, no swelling no warmth. Neurologic: alert, oriented x3, responsive, motor strength/tone normal, sensory intact, speech normal, grossly normal Psychiatric: judgement/insight normal Skin: normal color, no rash, warm/dry, well hydrated Medical Decision Making PA Attestation Dr. Schofield is my supervising physician whom pt. management has been discussed with. Diagnostic Impression: Primary Impression: Tendinitis of right forearm ER Course 74-year-old male presents to the emergency department complaining of 3 out of 10 severity localized right forearm pain to the proximal forearm area progressive x1 week. Patient reports pain is exacerbated upon lifting heavy objects, shaking people's hands or twisting his hand externally. Patient denies appreciable trauma or fall. Patient denies erythema, bruising, swelling , open wounds or warmth. Patient states that he does play ping-pong quite often and is right-handed. He denies fevers, chills, paresthesias or weakness in the extremity. No other aggravating or relieving factors. Ddx considered but are not limited to Fracture, dislocation, contusion, Sprain/ Strain/Spasm, elbow tendonitis just to name a few. Vital signs: are WNL, pt. is afebrile H&PE are most consistent with Soft tissue injury/ tendonitis, no suspicion for fractures/ dislocations. ORDERS: -Imaging not warranted on an emergent basis at this time. ED INTERVENTIONS: - d/w pt. conservative tx. -I do not identify an emergent condition at this time. With current presentation , pt. is stable for close outpatient follow up and conservative treatment. D/ w pt. to return promptly to ED with worsening or new symptoms.- Pt. verbalizes' understanding and agreement with proposed treatment plan. DISCHARGE: At this time pt. is stable for d/c to home. Will provide printed patient care instructions, and any necessary prescriptions. Care plan and follow up instructions have been discussed with the patient prior to discharge. Last Vital Signs Date Time Temp Pulse Resp B/P (MAP) Pulse Ox O2 Delivery O2 Flow Rate FiO2 04/10/19 12:26 97.3 18 121/70 94 04/10/19 12:26 68 Status: improved Disposition: HOME, SELF-CARE Condition: Stable Patient Instructions: Tennis Elbow, [id number] Additional Instructions: Take medications as directed. Follow up with a Primary Care Provider in 3-5 days, even if your symptoms have resolved. --Please review list of primary care clinics, if you do not already have a primary care provider Return sooner to ED if new symptoms occur, or current symptoms become worse. - Please note that this Emergency Department Report was dictated using [employer]av specialist technology software, occasionally this can lead to erroneous entry secondary to interpretation by the dictation equipment. Gloria Christiansen Apr 10, 2019 13:20
[2019-04-10] MEDS ORDERED: NAPROXEN500 M1 ORAL (13:21)
[2019-04-10] MEDS ORDERED: VOLTAREN100 G1 TP (13:21)
[2019-04-10 13:38] VITALS: BP 116/66
--- NOTE | 2019-04-10 13:40 | NUR ---
ER DISCHARGE NOTE: Patient is cleared to be discharged per ERMD, Patient is aox4. Patient was given discharge instruction and prescription. Patient was able to verbalize understanding, pt id band removed without complications. pt is able to ambulate with steady gait. pt took all belongings.
== END 2019-04-10 13:41 | disposition home or self-care (01) ==
LOC: EMR 13:05
DX: M77.9 Enthesopathy, unspecified (principal)
CPT/HCPCS: 99281

== ENCOUNTER 2019-08-04 12:25 | Emergency (ER) | payer MEDICARE, MEDICAID ==
[~2019-08-04] VITALS: Ht 175.3 cm; Wt 81.6 kg
[~2019-08-04 12:25] MED LIST changes: +NAPROXEN500 M1 ORAL; +VOLTAREN100 G1 TP
[2019-08-04 12:32] VITALS: BP 118/73
--- NOTE | 2019-08-04 12:35 | NUR ---
ED Nurse Note: pt presents to ED with congestion and back pain. pt states that he has been coughing and is very active so he is unsure what could have caused the back pain. pt describes the cough as intermittent and feeling like "chest congestion". he reports having clear fluid come out when he coughs which also aggravates his back pain.
--- NOTE | 2019-08-04 13:41 | Diagnostic Imaging Report ---
Indication: Cough Technique: One view of the chest Comparison: 09/10/2018 Findings: Lungs and pleural spaces are clear. The heart size is normal. There are bilateral basilar atelectatic changes or scarring again demonstrated. Findings are unchanged Impression: No acute process
--- NOTE | 2019-08-04 13:54 | Emergency Room Report ---
History of Present Illness General Chief Complaint: Upper Respiratory Illness Source: Medical Record Present Illness HPI 74-year-old male with history of heavy tobacco smoke as well as prostate cancer status post surgery x2 years here complaining of 1 week of cough and congestion. Patient denies sore throat, fever and chills. Reports that he feels a lot of congestion in his chest. However denies chest pain, shortness of breath, palpitation, dizziness and headache. Patient has stable vital signs. Reports that he has been a heavy tobacco smoker for years. Reports that he has not followed up with his urologist since the removal of prostate x2 years. Denies abdominal pain, weight loss, fever and chills, night sweats. Has not taken medication for symptom relief. Allergies: Coded Allergies: No Known Allergies (Unverified , 04/10/19) Patient History Past Medical History: see triage record Past Surgical History: unable to obtain Pertinent Family History: none Social History: Reports: smoking Immunizations: UTD Reviewed Nursing Documentation: PMH: Agreed; PSxH: Agreed Nursing Documentation-PMH Past Medical History: No History, Except For Hx Cardiac Problems: No - BPH insomnia Hx Hypertension: No Hx Pacemaker: No Hx Asthma: Yes - childhood Hx COPD: No Hx Diabetes: No Hx Cancer: Yes - prostate Hx Gastrointestinal Problems: Yes Hx Dialysis: No Hx Neurological Problems: No Hx Cerebrovascular Accident: No Hx Seizures: No Review of Systems All Other Systems: negative except mentioned in HPI Physical Exam Vital Signs Date Time Temp Pulse Resp B/P (MAP) Pulse Ox O2 Delivery O2 Flow Rate FiO2 08/04/19 12:32 79 18 Room Air 08/04/19 12:32 98.4 118/73 (88) 98 Sp02 EP Interpretation: reviewed, normal General Appearance: no apparent distress, alert, GCS 15, non-toxic Head: normocephalic, atraumatic Eyes: bilateral eye normal inspection, bilateral eye PERRL ENT: hearing grossly normal, normal pharynx, no angioedema, normal voice Neck: full range of motion, supple/symm/no masses Respiratory: chest non-tender, lungs clear, normal breath sounds, no rhonchi, no respiratory distress, no retraction, no wheezing, speaking full sentences Cardiovascular #1: regular rate, rhythm, no edema, no murmur Gastrointestinal: normal inspection, normal bowel sounds, non tender, soft Rectal: deferred Musculoskeletal: back normal, gait/station normal, normal range of motion, non- tender, no calf tenderness Neurologic: alert, oriented x3, responsive, motor strength/tone normal, sensory intact, speech normal Psychiatric: judgement/insight normal, memory normal, mood/affect normal, no suicidal/homicidal ideation Skin: no rash Lymphatic: no adenopathy Medical Decision Making PA Attestation All diagnoses and treatment plans were reviewed and discussed with my supervising physician Dr. Azar Diagnostic Impression: Primary Impression: Upper respiratory infection ER Course 74-year-old male with history of heavy tobacco smoke as well as prostate cancer status post surgery x2 years here complaining of 1 week of cough and congestion. Patient denies sore throat, fever and chills. Reports that he feels a lot of congestion in his chest. However denies chest pain, shortness of breath, palpitation, dizziness and headache. Patient has stable vital signs. Reports that he has been a heavy tobacco smoker for years. Reports that he has not followed up with his urologist since the removal of prostate x2 years. Denies abdominal pain, weight loss, fever and chills, night sweats. Has not taken medication for symptom relief. Ddx considered but are not limited to: bronchitis, PNA, URI viral, bacterial bronchitis, metastatic cancer, Vital signs: are WNL, pt. is afebrile H&PE are most consistent with: URI presumed bacterial due to patient smoking status ORDERS: Chest x-ray, Phenergan, azithromycin, albuterol inhaler ED INTERVENTIONS: None required at this time. DISCHARGE: At this time pt. is stable for d/c to home. Will provide printed patient care instructions, and any necessary prescriptions. Care plan and follow up instructions have been discussed with the patient prior to discharge. Take medication as directed follow-up with primary care provider if worsening symptoms return to the emergency room Chest X-Ray Diagnostic Results Chest X-Ray Diagnostic Results : Chest X-Ray Ordered: Yes # of Views/Limited/Complete: 1 View Indication: Other EP Interpretation: Yes HENRIQUE Xray: Interpretation reviewed, by supervising MD, and agrees with findings. Interpretation: no consolidation, no effusion, no pneumothorax Impression: No acute disease Electronically Signed by: Kleber Dinh PA-C Last Vital Signs Date Time Temp Pulse Resp B/P (MAP) Pulse Ox O2 Delivery O2 Flow Rate FiO2 08/04/19 12:32 98.4 79 18 118/73 98 Room Air Disposition: HOME, SELF-CARE Condition: Stable Scripts Albuterol Sulfate (VENTOLIN HFA) 18 Gm Hfa.aer.ad 2 PUFFS INH EVERY 6 HOURS, #18 GM 0 Refills Prov: Kleber Morel 08/04/19 Promethazine Hcl (PROMETHAZINE HCL*) 6.25 Mg/5 Ml Syrup 5 ML ORAL Q6H, #120 ML 0 Refills Prov: Kleber Morel 08/04/19 Azithromycin* (ZITHROMAX*) 250 Mg Tablet 250 MG ORAL DAILY, #6 TAB 0 Refills Take two tables once daily for 1 day, then one tablet once daily for 4 days. Prov: Kleber Morel 08/04/19 Referrals: NON PHYSICIAN (PCP) Patient Instructions: Upper Respiratory Infection, Adult Additional Instructions: Take medication as directed follow-up with your primary care provider if worsening symptoms return to the emergency room Kleber Morel Aug 04, 2019 13:54
[2019-08-04] MEDS ORDERED: ZITHROMAX250 MG ORAL (13:56)
[2019-08-04] MEDS ORDERED: PROMETHAZI6.25 MG/1 ORAL (13:56)
[2019-08-04] MEDS ORDERED: VENTOLIN HFA18 GM INH (13:56)
--- NOTE | 2019-08-04 14:18 | NUR ---
Note simona in EDM - 08/04/19 at 1733 by KRISTINE ED Nurse Note: pt is stable and will be d/c home with his to f/u with PCP. pt was given education on perscribed meds and home remedies for his back pain. pt understands and will return to ED for worsening of symptoms and any other concerns.
[2019-08-04 14:28] VITALS: BP 123/73
--- NOTE | 2019-08-04 14:28 | NUR ---
ED Nurse Note: pt is stable and will be d/c home with his to f/u with PCP. pt was given education on perscribed meds and home remedies for his back pain. pt understands and will return to ED for worsening of symptoms and any other concerns.
== END 2019-08-04 14:28 | disposition home or self-care (01) ==
LOC: EMR 12:44
DX: J06.9 Acute upper respiratory infection, unspecified (principal); N40.0 Benign prostatic hyperplasia without lower urinary tract symptoms; G47.00 Insomnia, unspecified; Z85.46 Personal history of malignant neoplasm of prostate; F17.200 Nicotine dependence, unspecified, uncomplicated
CPT/HCPCS: 71045; 99283

== ENCOUNTER 2019-09-12 11:05 | Emergency (ER) | payer MEDICARE, MEDICAID ==
[~2019-09-12] VITALS: Ht 170.2 cm; Wt 72.6 kg
[~2019-09-12 11:05] MED LIST changes: +PROMETHAZI6.25 MG/1 ORAL; +VENTOLIN HFA18 GM INH; +ZITHROMAX250 MG ORAL
--- NOTE | 2019-09-12 11:28 | Emergency Room Report ---
History of Present Illness General Chief Complaint: General Complaint Source: Patient, Medical Record Present Illness HPI The patient was taking a shower and noticed blood on his legs. He tracked this down to bleeding from his scrotum. There is no pain. He does not know of any trauma. He denies any fevers or chills. There is no dysuria. Is not any blood thinners. He has no varicose veins. There is been no swelling to the scrotal area. No chest pain, palpitations, nausea, vomiting, diarrhea, abdominal pain, shortness of breath, joint pain, depression, anxiety, visual changes, dizziness , headache. The patient has a history of prostate cancer. Allergies: Coded Allergies: No Known Allergies (Unverified , 04/10/19) Patient History Past Medical History: see triage record Social History Narrative In the shower the patient started noticing blood on his leg. Is coming from his scrotum. Denies any pain. The bleeding is stopped at this time. Is not taking blood thinner. There is no trauma. He denies any other bruit bleeding complications. Patient's tetanus is 2 years ago. She is requesting that we clean out his ears. Reviewed Nursing Documentation: PMH: Agreed; PSxH: Agreed Nursing Documentation-PMH Past Medical History: No History, Except For Hx Cardiac Problems: No - BPH insomnia Hx Hypertension: No Hx Pacemaker: No Hx Asthma: Yes - childhood Hx COPD: No Hx Diabetes: No Hx Cancer: Yes - prostate Hx Gastrointestinal Problems: Yes Hx Dialysis: No Hx Neurological Problems: No Hx Cerebrovascular Accident: No Hx Seizures: No Review of Systems All Other Systems: negative except mentioned in HPI Physical Exam Vital Signs Date Time Temp Pulse Resp B/P (MAP) Pulse Ox O2 Delivery O2 Flow Rate FiO2 09/12/19 11:08 97.9 70 16 143/75 (97) 96 Room Air Sp02 EP Interpretation: reviewed, normal General Appearance: well appearing, no apparent distress, GCS 15 Head: normocephalic Eyes: bilateral eye PERRL, bilateral eye other - Arcus ENT: hearing grossly normal, TMs + canals normal, moist mucus membranes Neck: full range of motion, supple Respiratory: lungs clear, normal breath sounds Cardiovascular #1: regular rate, rhythm Cardiovascular #2: 2+ radial (R) Gastrointestinal: normal inspection, normal bowel sounds, non tender, no mass, non-distended Genitourinary: penis normal, other - All follicular lesion no active bleeding no erythema Musculoskeletal: back normal, gait/station normal, normal range of motion Neurologic: alert, oriented x3 Psychiatric: mood/affect normal Skin: warm/dry, other - Nonbleeding lesion follicle right-sided scrotum Medical Decision Making Diagnostic Impression: Primary Impression: Scrotal bleeding ER Course Patient presents with bleeding from his scrotum. Bleeding is not present at this time. Differential includes blood dyscrasia, anticoagulation, varicocele, inadvertent trauma amongst others. Lab including CBC, PT/PTT and CMP are ordered. Bacitracin is applied to the area. Labs unremarkable. No more bleeding under observation here in the emergency department. Discussed treatment plan with patient. Patient stable for outpatient observation and treatment. Laboratory Tests Test 09/12/19 11:45 White Blood Count 4.5 K/UL (4.8-10.8) L Red Blood Count 4.93 M/UL (4.70-6.10) Hemoglobin 15.4 G/DL (14.2-18.0) Hematocrit 44.9 % (42.0-52.0) Mean Corpuscular Volume 91 FL (80-99) Mean Corpuscular Hemoglobin 31.2 PG (27.0-31.0) H Mean Corpuscular Hemoglobin Concent 34.2 G/DL (32.0-36.0) Red Cell Distribution Width 11.7 % (11.6-14.8) Platelet Count 336 K/UL (150-450) Mean Platelet Volume 4.8 FL (6.5-10.1) L Neutrophils (%) (Auto) 52.0 % (45.0-75.0) Lymphocytes (%) (Auto) 33.7 % (20.0-45.0) Monocytes (%) (Auto) 9.3 % (1.0-10.0) Eosinophils (%) (Auto) 3.3 % (0.0-3.0) H Basophils (%) (Auto) 1.8 % (0.0-2.0) Prothrombin Time 10.6 SEC (9.30-11.50) Prothrombin Time INR 1.0 (0.9-1.1) PTT 26 SEC (23-33) Sodium Level 143 MMOL/L (136-145) Potassium Level 4.3 MMOL/L (3.5-5.1) Chloride Level 108 MMOL/L (98-107) H Carbon Dioxide Level 31 MMOL/L (21-32) Anion Gap 5 mmol/L (5-15) Blood Urea Nitrogen 13 mg/dL (7-18) Creatinine 1.3 MG/DL (0.55-1.30) Estimate Glomerular Filtration Rate mL/min (>60) Glucose Level 101 MG/DL (74-106) Calcium Level 8.2 MG/DL (8.5-10.1) L Total Bilirubin 0.5 MG/DL (0.2-1.0) Aspartate Amino Transferase (AST) 23 U/L (15-37) Alanine Aminotransferase (ALT) 25 U/L (12-78) Alkaline Phosphatase 75 U/L (46-116) Total Protein 7.5 G/DL (6.4-8.2) Albumin 3.6 G/DL (3.4-5.0) Globulin 3.9 g/dL Albumin/Globulin Ratio 0.9 (1.0-2.7) L Last Vital Signs Date Time Temp Pulse Resp B/P (MAP) Pulse Ox O2 Delivery O2 Flow Rate FiO2 09/12/19 15:08 97.3 64 19 110/48 98 Room Air Status: improved Disposition: HOME, SELF-CARE Condition: Improved Scripts Bacitracin (Bacitracin) 28.4 Gm Oint...g. 1 APPLIC TOPIC BID, #10 GM Prov: Juan Singer MD 09/12/19 Juan Singer MD Sep 12, 2019 11:28
[2019-09-12] MEDS ORDERED: Bacitracin Oint UD TOPIC ONE (11:30)
--- NOTE | 2019-09-12 11:32 | NUR ---
ED Nurse Note: came from home for having unknown sourse of bleeding under the scrotum after showering, patiet is alert and talkative with no pain around the region, has no delay and is coherent answering all questions accurately, HR is 65 in sinus rhythm on room air with saturations of 100% on room air. placed on monitor and waiting for orders from er physician
[2019-09-12 11:36] VITALS: BP 128/69
[2019-09-12 12:00] VITALS: BP 117/53
[2019-09-12 12:11] LABS: BASOPHILS % (AUTO) 1.8 % (0.0-2.0); EOSINOPHILS % (AUTO) 3.3 % (0.0-3.0); HEMATOCRIT 44.9 % (42.0-52.0); HEMOGLOBIN 15.4 G/DL (14.2-18.0); LYMPHOCYTES % (AUTO) 33.7 % (20.0-45.0); MEAN CORPUSCULAR VOLUME 91 FL (80-99); MONOCYTES % (AUTO) 9.3 % (1.0-10.0); PLATELET COUNT 336 K/UL (150-450); RED BLOOD COUNT 4.93 M/UL (4.70-6.10); RED CELL DISTRIBUTION WIDTH 11.7 % (11.6-14.8); WHITE BLOOD COUNT 4.5 K/UL (4.8-10.8)
[2019-09-12 12:43] LABS: ANION GAP 5 mmol/L (5-15); BLOOD UREA NITROGEN 13 mg/dL (7-18); CALCIUM 8.2 MG/DL (8.5-10.1); CARBON DIOXIDE 31 MMOL/L (21-32); CHLORIDE 108 MMOL/L (98-107); CREATININE 1.3 MG/DL (0.55-1.30); POTASSIUM 4.3 MMOL/L (3.5-5.1); SODIUM 143 MMOL/L (136-145)
[2019-09-12 12:48] LABS: ALANINE AMINOTRANSFERASE 25 U/L (12-78); ALBUMIN 3.6 G/DL (3.4-5.0); ALBUMIN/GLOBULIN RATIO 0.9 (1.0-2.7); ALKALINE PHOSPHATASE 75 U/L (46-116); ASPARTATE AMINO TRANSFERASE 23 U/L (15-37); BILIRUBIN,TOTAL 0.5 MG/DL (0.2-1.0)
[2019-09-12 13:00] VITALS: BP 109/46
[2019-09-12 14:00] VITALS: BP 112/53
[2019-09-12] MEDS ORDERED: BACITRACIN15 GM TOPIC (14:42)
[2019-09-12 15:08] VITALS: BP 110/48
--- NOTE | 2019-09-12 15:12 | NUR ---
ED Nurse Note: Patient discharge with porblem resolved, no active bleeding noted with pain of 0/10, he is able to ambulate with no assistance and steady, medication list given, taken home with .
== END 2019-09-12 15:08 | disposition home or self-care (01) ==
LOC: EMR 11:54
DX: N50.1 Vascular disorders of male genital organs (principal); Z85.46 Personal history of malignant neoplasm of prostate
CPT/HCPCS: 36415; 80053; 85025; 85610; 85730; 99284